=== PATIENT | male | born 1995 | race Caucasian/White ===

== ENCOUNTER 2016-10-05 14:47 | Emergency (ER) | payer OTHER ==
[~2016-10-05] VITALS: Ht 177.8 cm; Wt 100.0 kg
[2016-10-05 15:03] VITALS: BP 133/71; PULSE 76; RESP 16; O2SAT 97
[2016-10-05 15:58] LABS: Mean Corpuscular Volume 83.4 fL (81-100)
[2016-10-05 16:04] LABS: BASOPHILS % (AUTO) 0.6 % (0-3); EOSINOPHILS % (AUTO) 0.9 % (0-5); MONOCYTES % (AUTO) 12.8 % (4-12); Mean Corpuscular Hemoglobin 27.8 pg (27.0-35.0); NEUTROPHILS % (AUTO) 69.9 % (40-74); Platelet Count 607 bil/L (150-400)
[2016-10-05 16:11] LABS: Magnesium 2.2 mg/dL (1.6-2.6)
[2016-10-05] MEDS ORDERED: 0.9% Sodium Chloride 1,000 ML IV ONE (16:35)
[2016-10-05] MEDS ORDERED: HYDROmorphone 0.5 mg/0.5 mL iSecure Syringe IVPUSH PRN (16:35)
[2016-10-05] MEDS ORDERED: Ondansetron 2 mg/mL 2 mL Inj IVPUSH PRN (16:35)
--- NOTE | 2016-10-05 17:01 | ED.REPORT ---
HPI-Abd Pain M Under 40 Date of Service Oct 05, 2016 ED Provider: Rach Rhodes MD The pt is a 20 y/o male w/ a hx of asthma and depression presenting to the ED complaining of RLQ abdominal pain onset 1 week ago. He reports the pain becoming much worse 3 days ago, worsening even more after pressure was applied earlier today, and it being sharp and burning. Physical activity worsens the pain, laying down helps reduce the pain and he rates it with a 7/10 severity. He also reports experiencing diarrhea, decreased appetite, feeling colder than usual and having a fever last week. 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 The last thing he had to eat were some tater tots at 1330. Denies vomiting, testicular pain, changes in urination or defecation. Nursing Notes Stated Complaint: POSSIBLE APPENDICITIS Chief Complaint: Male Abdominal Pain Nursing Notes Reviewed: Yes Allergies: Coded Allergies: No Known Allergies (Unverified Allergy, Unknown, 10/05/16) Scheduled Budesonide EC (Budesonide EC) 3 Mg Capsule 9 MG PO DAILY 3 capsules daily (can be all at the same time) Scheduled PRN oxyCODONE-Acetaminophen 5-325 mg (oxyCODONE-Acetaminophen 5-325 mg) 1 Each Tablet 0.5-1 TAB PO Q6H PRN PRN For Pain General Time Seen by MD: 16:18 Chief Complaint Abdominal pain (RLQ) Hx Obtained From: Patient Arrived By: Ambulance Sudden in Onset?: Yes Onset Occurred: 5 - 8 hours ago Recent Healthcare: No recent doctor visit, No recent hospitalization Similar Sx Previous: No Past Medical History Past Medical History Asthma Depression Past Surgical History Spleenectomy Smoking History Current Every Day Smoker (Marijuana ) Ambulatory Status Independent Review of Systems Decreased appetite Denies changes in urination or defecation Constitutional: Reports: Chills GI: Reports: Abdominal pain (RLQ), Denies: Vomiting Male: Denies Testicular pain Complete sys rev & neg: except as marked. Physical Exam Initial Vital Signs Vital Signs (First) Date Time Temp Pulse Resp B/P Pulse Ox O2 Delivery O2 Flow Rate FiO2 10/05/16 15:03 36.5 76 16 133/71 97 Room Air Initial VS: Reviewed General/Constitutional: Awake, Alert Respiratory / Chest: Atraumatic, Breath sounds NL, Breath sounds = bilat, No respiratory distress, No rales, No rhonchi, No wheezing Cardiovascular: Heart rate NL, Regular rhythm, Heart sounds NL Abdomen: Atraumatic, Soft, BS normoactive Point tenderness in RLQ w/ minor amount of rebound Back: Atraumatic, Inspection NL, Full range of motion, No CVA tenderness Head / Eyes: Atraumatic, Normocephalic ENT: Atraumatic, Airway patent, Mucous membranes moist Neurologic: Oriented X3, Speech NL Skin: Atraumatic, Color NL, No rash, Warm, Dry Psychiatric: Affect NL, Mood NL Interpretation & Diagnostics Interpretation & Diagnostics: Ultrasound is unable to specifically identify the appendix but there is a large dilated nonmobile loop of bowel in the right upper quadrant Lab Results Interpretation Result Diagram: 10/05/16 1530 10/05/16 1530 Test 10/05/16 15:20 10/05/16 15:30 Hold Urine Received (Received) White Blood Count 21.5th/mm3 (3.8-10.1) Red Blood Count 4.93mil/mm3 (4.40-5.80) Hemoglobin 13.7g/dL (13.8-17.2) Hematocrit 41.1% (41.0-50.0) Mean Corpuscular Volume 83.4fL (81-100) Mean Corpuscular Hemoglobin 27.8pg (27.0-35.0) Mean Corpuscular Hemoglobin Concent 33.3% (32.0-37.0) Red Cell Distribution Width 15.2% (12.3-15.4) Platelet Count 607bil/L (150-400) Neutrophils (%) (Auto) 69.9% (40-74) Lymphocytes (%) (Auto) 15.1% (14-46) Monocytes (%) (Auto) 12.8% (4-12) Eosinophils (%) (Auto) 0.9% (0-5) Basophils (%) (Auto) 0.6% (0-3) Sodium Level 138mEq/L (134-144) Potassium Level 4.1mEq/L (3.5-5.2) Chloride Level 102mEq/L (97-108) Carbon Dioxide Level 22mmol/L (18-29) Blood Urea Nitrogen 13mg/dL (6-20) Creatinine 0.91mg/dL (0.76-1.27) Estimat Glomerular Filtration Rate 113mL/min (>59) Glucose Level 87mg/dL (60-99) Calcium Level 9.5mg/dL (8.5-10.1) Magnesium Level 2.2mg/dL (1.6-2.6) Total Bilirubin 0.3mg/dL (0.0-1.2) Aspartate Amino Transf (AST/SGOT) 31U/L (0-50) Alanine Aminotransferase (ALT/SGPT) 40U/L (0-44) Alkaline Phosphatase 122U/L (25-150) Total Protein 7.8g/dL (6.4-8.4) Albumin 3.5g/dL (3.4-5.0) Lipase 34U/L (13-60) Hold Mujica Top Tube Received (Received) CT Abd / Pelvis Interpretation IMPRESSION: 1. Segmental wall thickening of the terminal ileum and ascending colon consistent with a nonspecific enterocolitis, likely from infection or inflammatory etiologies such as inflammatory bowel disease. 2. No evidence of appendicitis. 3. 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 Recommend correlation with clinical history. Dictated by: Kaleb Stout M.D. on 10/05/2016 at 17:39 Approved by: Kaleb Stout M.D. on 10/05/2016 at 17:42 Study type: Abdom CT oral contrast Re-Eval/Medical Decision Med Decision/Clinical Course Will start patient on budesonide 9 mg daily with presumed inflammatory bowel disease. We will ask him to bring back a stool sample for PCR. As currently has no primary care physician will ask him to call the emergency room within 24 hours of bleeding his stool sample. If there is an infectious etiology we can treat that accordingly and he can stop the budesonide. If the stool comes back negative for infectious etiology he will need to call the GI clinic Saturday morning for an appointment early this week for additional follow-up. Source of Hx: Old records Re-Evaluation/Progress #1: Time of Eval: 17:57 Re-Evaluation/Progress Note: Rechecked pt and discussed imaging results. Re-Evaluation/Progress #2: Time of Eval: 18:32 Re-Evaluation/Progress Note: Pt rechecked. Informed pt of plan for treatment. Pt understands and agrees with plan for treatment. F/Uinstructions and RTER warnings given. All questions addressed. Consultation : Call Returned at: 18:11 Software Quality Specialist: Will see in office Note: Spoke with Dr. Jessica. Will start patient on budesonide 9 mg daily with presumed inflammatory bowel disease. We will ask him to bring back a stool sample for PCR. If there is an infectious etiology we can treat that accordingly and he can stop the budesonide. If the stool comes back negative for infectious etiology he will need to call the GI clinic Saturday for an appointment early this week for additional follow-up. Counseled Regarding: Diagnosis, Lab results, Need for follow-up, When/why to return to ED Patient Discharge & Departure Primary Impression: Terminal ileitis Disposition: Home Discharge Condition All VS Reviewed: Yes Condition: Stable Additional Instructions: You do not have appendicitis I am going to start you on a steroid called budesonide 9 mg daily to reduce the inflammation that we found in your colon. Need to bring in a stool sample so that we can prove that there is not an infectious reason causing these findings. You will need to to call back to the emergency Department within 24 hours of bringing in the stool sample so we can review the results with you. [phone] There is an infectious source found in your stool we will treat that as needed and you can stop the budesonide The stool sample is negative, he will need to continue the budesonide and call the gastroenterology clinic on Saturday to be seen early this week. I have spoken with Dr. Estrada one of the gastroenterologists and we have reviewed the plan as above Review feel like you are getting worse, please return to the emergency department If you feel the your pain is significant enough that it needs narcotic pain control, you can use half to one Percocet every 6 hours. Thank you for coming in today, I hope you feel better soon. Allyson Attestation Portions of this note were transcribed by Poncho Madison. I, Dr. Rhodes personally performed the history, physical exam and medical decision-making; I reviewed and confirmed the accuracy of the information in the transcribed note. Signed by : Allyson Santiago, 10/05/16 and 5305. Rach Rhodes MD Oct 05, 2016 17:01 Poncho Madison Oct 05, 2016 17:08
--- NOTE | 2016-10-05 17:40 | DRSVH ---
PROCEDURE: US APPENDIX INDICATIONS: RLQ pain for possible appendicitis. TECHNIQUE: Real-time focused scanning was performed of the abdomen with attention to the appendix, with image do cumentation. COMPARISON: [facility], CT, CT ABD PELVIS W CON, 10/05/2016, 17:23. FINDINGS: The appendix is not discretely identified sonographically. No free fluid visualized in the right low er quadrant. There is a thickwalled loop of bowel demonstrated in the right mid abdomen suggesting c olitis. There are a few mildly prominent mesenteric lymph nodes measuring up to 8 mm. IMPRESSION: 1. Appendix not discretely identified sonographically. Dictated by: Kaleb Stout M.D. on 10/05/2016 at 17:36 Approved by: Kaleb Stout M.D. on 10/05/2016 at 17:38
--- NOTE | 2016-10-05 17:44 | DRSVH ---
PROCEDURE: CT ABDOMEN AND PELVIS WITH CONTRAST ([id number]) INDICATIONS: abdominal pain TECHNIQUE: After the administration of oral and intravenous contrast, 5 mm thick sections acquired from the diap hragms to the symphysis. 5 mm thick coronal and sagittal reformats were performed. For radiation do se reduction, the following was used: automated exposure control, adjustment of mA and/or kV accordi ng to patient size. COMPARISON: None. FINDINGS: Image quality: Excellent. ABDOMEN: Lung bases: There is minimal dependent atelectasis. Heart size is normal. Solid organs: No focal hepatic lesions identified. The spleen is absent, with a small nodule demonst rated beneath the left hemidiaphragm measuring up to 1.2 cm likely representing a splenule. Gallblad stephanie appears within normal limits. Biliary system is non-dilated. Pancreas enhances normally. No ad renal nodules. Kidneys are normal in size and enhancement, without hydronephrosis. Peritoneum and bowel: The appendix is normal in appearance. There is mild segmental wall thickening of the terminal ileum with mucosal enhancement. There is also mild segmental wall thickening of the ascending colon. No free fluid or air. Nodes and vessels: No retroperitoneal or mesenteric adenopathy. Aorta and inferior vena cava are no rmal in caliber. Miscellaneous: No ventral hernias. PELVIS: Genitourinary: Bladder wall thickness is normal. Miscellaneous: No inguinal hernias or adenopathy. Bones: No suspicious bony lesions. No vertebral body compression fractures. IMPRESSION: 1. Segmental wall thickening of the terminal ileum and ascending colon consistent with a nonspecific enterocolitis, likely from infection or inflammatory etiologies such as inflammatory bowel disease. 2. No evidence of appendicitis. 3. 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 Recommend correlation with clinical history. Dictated by: Kaleb Stout M.D. on 10/05/2016 at 17:39 Approved by: Kaleb Stout M.D. on 10/05/2016 at 17:42
[2016-10-05] MEDS ORDERED: BUDESONIDE 3 MG PO ONE (18:25)
[2016-10-05] MEDS ORDERED: oxyCODONE-Acetamin 5-325 mg Tablet PO ONE (18:25)
[2016-10-05] MEDS ORDERED: BUDE3CAP7 PO (18:28)
[2016-10-05] MEDS ORDERED: OXYC1TAB24 PO (18:28)
[2016-10-05 18:53] VITALS: BP 131/74; PULSE 72; RESP 17; O2SAT 98
== END 2016-10-05 19:00 | disposition home or self-care (01) ==
LOC: SED 14:47
DX: K50.00 Crohn's disease of small intestine without complications (principal)
CPT/HCPCS: 36415; 74177; 76705; 80053; 83690; 83735; 85025; 96361; 96374; 96375; 99285; G0463; J1170; J2405; J7030; Q9967

== ENCOUNTER 2016-12-08 17:26 | Emergency (ER) | payer OTHER ==
[~2016-12-08] VITALS: Ht 177.8 cm; Wt 100.0 kg
[~2016-12-08 17:26] MED LIST: BUDE3CAP7 PO; OXYC1TAB24 PO
[2016-12-08 17:28] VITALS: BP 149/63; PULSE 73; RESP 16; O2SAT 98
--- NOTE | 2016-12-08 17:33 | ED.REPORT ---
HPI-Neck Pain Free Text HPI Notes Dec 08, 2016 ED Provider: Dr. Walters Pt is a 21 year old male presenting to the ED complaining of neck soreness and stiffness onset this morning when he woke up. He states that it is hard for him to turn his head to the right. Denies any injury. He is able to turn his head all the way to the left but is unable to turn it very far to the right. Denies any new pillows or new bed recently, numbness, tingling, nausea, vomiting, SOB, fever. Pt works at a [employer]. He has been taking Ibuprofen with some relief. Nursing Notes Stated Complaint: NECK PAIN Chief Complaint: General Complaint Nursing Notes Reviewed: Yes Allergies: Coded Allergies: No Known Allergies (Verified Allergy, Unknown, 12/08/16) Scheduled Budesonide EC (Budesonide EC) 3 Mg Capsule 9 MG PO DAILY 3 capsules daily (can be all at the same time) Scheduled PRN oxyCODONE-Acetaminophen 5-325 mg (oxyCODONE-Acetaminophen 5-325 mg) 1 Each Tablet 0.5-1 TAB PO Q6H PRN PRN For Pain General Time Seen by Provider: 17:33 Chief Complaint Neck pain Hx Obtained From: Patient Arrived By: Walk-in Sudden in Onset?: Yes Onset Occurred: 9 - 12 hours ago Symptom Duration: Since onset Progression Since Onset: Constant Quality: Painful Severity: Current: Moderate Severity: Maximum: Moderate Recent Healthcare: No recent doctor visit, No recent hospitalization Similar Sx Previous: No Past Medical History Past Medical History Asthma Depression Past Surgical History Spleenectomy Smoking History Current Every Day Smoker Ambulatory Status Independent Review of Systems Constitutional: Denies: Fever Respiratory: Denies: Shortness of breath GI: Denies: Nausea, Vomiting Musculoskeletal: Reports: Neck pain Neurologic: Denies: Numbness Complete sys rev & neg: except as marked. Physical Exam Initial Vital Signs Vital Signs (First) Date Time Temp Pulse Resp B/P Pulse Ox O2 Delivery O2 Flow Rate FiO2 12/08/16 17:28 37.0 73 16 149/63 98 Room Air Initial VS: Reviewed Head / Eyes: Atraumatic, Normocephalic, PERRL ENT: Mucous membranes moist, Conjunctiva normal, No scleral icterus Respiratory: Breath sounds normal, Clear to auscultation, No respiratory distress Cardiovascular: Regular rate & rhythm, Heart sounds normal, Intact distal pulses Abdomen / GI: Soft, Non-tender, No guarding, No rebound, No distention Extremities: Vascular intact, Neuro intact, No swelling, No tenderness Skin: Warm, Dry, No cyanosis Psychiatric: Mood/affect normal, Behavior normal, Normal thought content General/Constitutional: Awake, Alert, No acute distress, Well appearing Neck: Atraumatic, Supple, No midline vertebral tend Mildly tender right lateral paracervical muscles. Mild stiffness with ROM of neck. No nuchal rigidity Re-Eval/Medical Decision Re-Evaluation/Progress : Time of Eval: 18:00 Patient Status: Condition improved Re-Evaluation/Progress Note: Discussed plan for discharge. Pt understands and agrees with plan. Counseled Regarding: Diagnosis, Lab results, Need for follow-up, When/why to return to ED Discharge & Departure Primary Impression: Neck muscle strain Encounter type: initial encounter Qualified Code: S16.1XXA - Strain of muscle, fascia and tendon at neck level, initial encounter Disposition: Home Discharge Condition All VS Reviewed: Yes Condition: Improved Additional Instructions: Thank you for entrusting us with your care. No dangerous cause for your neck pain and stiffness was identified. Take naproxen 500 mg twice daily as needed for pain. You may return to work tomorrow. You can also use ice or heat as needed for relief. Please follow-up with your primary care provider if hyour symptoms are not improving Referrals: NOPCP (PCP) Obdulio Wright MD ED Scribe Statement Portions of this note were transcribed by Vaishnavi Hidalgo. I, Dr. Walters personally performed the history, physical exam and medical decision-making; I reviewed and confirmed the accuracy of the information in the transcribed note. Signed by: Allyson Donahue, 12/08/2016. copies to: Obdulio Wright MD, Gary R DO Dec 08, 2016 17:33 VAISHNAVI HIDALGO Dec 08, 2016 17:50
== END 2016-12-08 18:13 | disposition home or self-care (01) ==
LOC: SED 17:26
DX: S16.1XXA Strain of muscle, fascia and tendon at neck level, initial encounter (principal); F17.200 Nicotine dependence, unspecified, uncomplicated; Z79.891 Long term (current) use of opiate analgesic; X50.1XXA Overexertion from prolonged static or awkward postures, initial encounter; Y93.89 Activity, other specified; Y99.8 Other external cause status; Y92.9 Unspecified place or not applicable